=== PATIENT | female | born 1955 | race Caucasian/White ===

== ENCOUNTER 2023-01-02 06:21 | Day surgery (SDC) | payer MEDICARE ==
[~2023-01-02 06:21] MED LIST: Midazolam 1 MG/ML 2 ML SDV ONE; Propofol 200 MG/20 ML SDV ONE; fentaNYL 50 MCG/ML SDV ONE
[2023-01-02] MEDS ORDERED: Sodium Chloride 0.9% 1,000 ML IV SCH (07:00)
== END 2023-01-02 09:23 | disposition home or self-care (01) ==
LOC: JP.SDS 06:21
PROVIDERS: ATTEND Surgery
DX: Z12.11 Encounter for screening for malignant neoplasm of colon (principal); K63.89 Other specified diseases of intestine; E78.5 Hyperlipidemia, unspecified; Z88.0 Allergy status to penicillin; Z88.2 Allergy status to sulfonamides
CPT/HCPCS: G0121; J2250; J2704; J3010; J7030

== ENCOUNTER 2024-12-21 07:40 | Emergency (ER) | payer MEDICARE ==
[2024-12-21 09:13] LABS: PLATELET COUNT,PLT 161 K/uL (130-375); RED BLOOD CELL COUNT 3.90 M/uL (3.77-5.24); WHITE BLOOD CELL COUNT,WBC 7.1 K/uL (3.2-11.0)
[2024-12-21 09:46] LABS: A/G RATIO 1.3 (1.2-2.2); ALANINE AMINOTRANSFERASE,ALT 27 U/L (12-78); ASPARTATE AMNIOTRANSFERASE,AST 29 U/L (15-37); BILIRUBIN TOTAL 0.6 mg/dL (0.2-1.0); BLOOD UREA NITROGEN,BUN 14 mg/dL (7-18); CARBON DIOXIDE,CO2 30 mmol/L (21-32); CHLORIDE,CL 101 mmol/L (100-108); CREATININE 0.8 mg/dL (0.6-1.0); EST CRCL DRUG DOSING (CG) 54.13 mL/min; ESTIMATED GFR 79 mL/min (>60); GLUCOSE RANDOM 120 mg/dL (74-106); POTASSIUM,K 3.2 mmol/L (3.6-5.2); PROTEIN TOTAL,TP 6.6 g/dL (6.4-8.2); SODIUM,NA 138 mmol/L (140-148); TROPONIN I HIGH SENSITIVITY 7.2 pg/mL (<=60.3)
[2024-12-21 09:56] LABS: BAND ABSOLUTE MAN 0.85 K/uL; BAND PERCENT MAN 12 % (5-11); LYMPHOCYTES ABSOLUTE MAN 0.14 K/uL (0.8-3.3); LYMPHOCYTES PERCENT MAN 2 % (24-44); MONOCYTES ABSOLUTE MAN 0.14 K/uL (0.20-0.90); MONOCYTES PERCENT MAN 2 % (2-6); NEUTROPHILS ABSOLUTE MAN 5.96 K/uL (1.0-7.6); SEG NEUTROPHILS PERCENT MAN 84 % (36-66)
[2024-12-21 12:01] LABS: APPEARANCE,URINE CLEAR (CLEAR); GLUCOSE,URINE NEGATIVE (NEGATIVE); OCCULT BLOOD,URINE TRACE-INTACT (NEGATIVE)
== END 2024-12-21 14:50 | disposition home or self-care (01) ==
LOC: JP.ED 07:40
DX: R50.9 Fever, unspecified (principal); Z88.0 Allergy status to penicillin; Z88.2 Allergy status to sulfonamides
CPT/HCPCS: 36415; 80053; 81003; 84484; 85025; 86140; 86618; 87040; 87468; 87469; 87484; 87798; 93005; 96365; 99284; A9270; J0696; J7030